=== PATIENT | male | born 1970 | race Caucasian/White ===

== ENCOUNTER 2020-09-29 17:00 | Emergency (ER) | payer BC ==
[~2020-09-29] VITALS: Ht 170.2 cm; Wt 74.4 kg
[~2020-09-29 17:00] MED LIST: VALS1TAB4 PO
--- NOTE | 2020-09-29 17:37 | NUR ---
DR JAMA REVIEWED CXR RESULT TO PT. DISCHARGE INSTRUCTIONS GIVEN BY .
--- NOTE | 2020-09-29 17:52 | NUR ---
Patient discharged to home in stable condition. Written and verbal after care instructions given. Patient verbalizes understanding of instructions. Stressed follow up or return to ER for worsening s/s.
== END 2020-09-29 17:53 | disposition home or self-care (01) ==
LOC: ER 17:02
DX: S22.079A Unspecified fracture of T9-T10 vertebra, initial encounter for closed fracture (principal); S22.42XA Multiple fractures of ribs, left side, initial encounter for closed fracture; W01.0XXA Fall on same level from slipping, tripping and stumbling without subsequent striking against object, initial encounter; Y92.89 Other specified places as the place of occurrence of the external cause; I10 Essential (primary) hypertension; S20.212A Contusion of left front wall of thorax, initial encounter; Z79.899 Other long term (current) drug therapy; F17.200 Nicotine dependence, unspecified, uncomplicated
CPT/HCPCS: 71250; A4663